=== PATIENT | female | born 1960 | race Hispanic/Latino ===

== ENCOUNTER 2018-02-15 15:30 | Emergency (ER) | payer OTHER ==
[~2018-02-15] VITALS: Ht 160 cm; Wt 76.2 kg
[~2018-02-15 15:30] MED LIST: TYLENOL325 MG PO
--- NOTE | 2018-02-15 23:00 | EKG ---
[facility] [address] [facility] [place] [address] Signed Normal sinus rhythm Normal ECG No previous ECGs available Confirmed by YOUSUF JORGE MD ([id number]) on 02/15/2018 11:00:00 PM Electronically Signed By: YOUSUF JORGE MD 02/15/18 2300 PATIENT NAME: JAME REYNOLDS Electrocardiogram DATE OF : 60 PHYSICIAN: YOUSUF JORGE MD REPORT #: [id number] REPORT IS CONFIDENTIAL AND NOT TO BE RELEASED WITHOUT AUTHORIZATION
== END 2018-02-15 18:21 | disposition home or self-care (01) ==
LOC: ED 15:30
DX: R07.9 Chest pain, unspecified (principal); M79.602 Pain in left arm; M79.605 Pain in left leg
CPT/HCPCS: 71046; 80053; 84484; 85025; 85379; 93005; 93010; 99285-25

== ENCOUNTER 2024-10-31 19:32 | Emergency (ER) | payer SELFPAY ==
[~2024-10-31] VITALS: Ht 160 cm; Wt 80.2 kg
[2024-10-31 20:21] LABS: BASOPHILS 0.2 % (0.1-1.2); EOSINOPHILS 0 % (0.7-5.8); LYMPHOCYTES 7.0 % (19.3-51.7); MCH 29.1 PG (25.6-32.2); MCHC 32.9 g/dL (32.2-35.5); MCV 88.5 fL (79.4-94.8); MONOCYTES 6.2 % (4.7-12.5); NEUTROPHILS 86.1 % (34.0-71.1); RBC 4.19 M/uL (3.93-5.22)
[2024-10-31 20:23] LABS: BLOOD/HGB, URINE MODERATE (Negative); KETONE, URINE NEGATIVE (Negative); LEUK ESTERASE, URINE MODERATE (negative); NITRITE, URINE POSITIVE (negative)
[2024-10-31 20:28] LABS: BACTERIA, URINE 4+ /hpf (negative); CRYSTALS, URINE NONE SEEN (0-1+); EPITHELIAL CELLS, URINE SQUAMOUS 1+ /lpf (0-1+)
[2024-10-31 20:29] LABS: CASTS, URINE NONE SEEN \\lpf; REFLEX CULTURE, URINE Yes (No)
[2024-10-31 21:01] LABS: ALT (SGPT) 18.0 U/L (14-59); AST (SGOT) 17.0 U/L (15-37); GLOMERULAR FILTRATION RATE,EST 86.0 mL/min (>60); PROTEIN, TOTAL 7.9 g/dL (6.4-8.2); UREA NITROGEN 8.0 mg/dL (7-18)
[2024-10-31] MEDS ORDERED: LACTATED RINGER'S 1,000 ML IV ONE (21:30)
[2024-10-31] MEDS ORDERED: KETOROLAC TROMETHAMINE 30 MG/ML VIAL IV ONE (21:30)
[2024-10-31 22:32] LABS: LACTIC ACID, BLOOD 1.2 mmol/L (0.4-2.0)
[2024-10-31] MEDS ORDERED: CEPHALEXIN500 MG PO (23:40)
[2024-11-01 00:07] VITALS: BP 115/41
== END 2024-11-01 00:11 | disposition home or self-care (01) ==
LOC: ED 19:32
PROVIDERS: Internal Medicine
DX: N39.0 Urinary tract infection, site not specified (principal)
CPT/HCPCS: 36415; 74176; 80053; 81001; 83605; 83690; 83735; 85025; 96365; 96375; 99284-25; J0696; J1885; J7121